=== PATIENT | female | born 1990 | race Two or more races ===

== ENCOUNTER 2017-06-24 20:31 | Emergency (ER) | payer OTHER ==
--- NOTE | ~2017-06-24 | US84 ---
[id number] [facility] [address] [place], [place] [address] [id number] E MR#: [id number] Acc #: [id number] NAME: CARLEEN LUBIN : 1990 SEX: F STUDY DATE/TIME: 06/24/2017 21:46 UNIT: RIO ROOM: STUDY DESCRIPTION: US LE Veins Complete Lex Stdy Attending Physician: Basim Lance D.O. Ordering Physician: Basim Lance D.O. Primary Care Physician: No Primary Care Physician MEDICAL IMAGING REPORT This report is preliminary unless electronic signature is present EXAM Lower extremity venous ultrasound, 06/24/2017. HISTORY Bilateral lower extremity pain and swelling from midthigh to feet x2 months intermittent. TECHNIQUE Venous ultrasound examination of both lower extremities was performed using grayscale, spectral Doppler and color flow Doppler imaging. FINDINGS The examination is negative. There is no evidence of deep venous thrombus from the groin to the lower calf bilaterally. Visualized greater saphenous veins are also patent. IMPRESSION Negative examination. No evidence of lower extremity deep venous thrombosis. Dictated by... Yusuf Belcher M.D. THIS IS AN ELECTRONICALLY VERIFIED REPORT Yusuf Belcher M.D. at 06/25/2017 7:55 PM KATHRINE/terrie TD: 06/25/2017 01:30 JOB #: [id number] MEDICAL IMAGING REPORT Page 1 of 1 COPY
[2017-06-24 22:58] LABS: URINE SOURCE CLEAN CATCH
[2017-06-24 23:04] LABS: URINE APPEARANCE CLEAR; URINE BILIRUBIN NEG (NEG); URINE BLOOD NEG (NEG); URINE COLOR YELLOW; URINE GLUCOSE NEG (NEG); URINE KETONE NEG (NEG); URINE LEUKOCYTE ESTERASE NEG (NEG); URINE NITRATE NEG (NEG); URINE PROTEIN NEG (NEG)
[2017-06-24 23:08] LABS: CULTURE INDICATED? NO
[2017-06-24 23:14] LABS: AMPHETAMINE NEG (NEG); BARBITURATES NEG (NEG); BENZODIAZEPINES NEG (NEG); COCAINE NEG (NEG); MARIJUANA NEG (NEG); OPIATES NEG (NEG); TRICYCLIC ANTIDEPRESSANTS NEG (NEG); U METHADONE NEG (NEG)
[2017-06-24 23:16] LABS: BASOPHIL# 0.1 X10e3 (0-0.3); BASOPHIL% 0.8 % (0-2.5); EOSINOPHIL# 0.1 X10e3 (0-0.7); HEMATOCRIT 41.6 % (35.0-45.0); HEMOGLOBIN 13.8 gm/dL (12.0-16.0); LYMPHOCYTE# 2.7 X10e3 (1.0-3.5); LYMPHOCYTE% 21.2 % (17.0-45.0); MEAN CELL VOLUME 90.6 FL (83-96); MEAN CORPUSCULAR HGB CONC 33.1 g/dL (30-36); MONOCYTE# 0.8 X10e3 (0-1.0); MONOCYTE% 6.7 % (3.0-12.0); NEUTROPHIL# 8.9 X10e3 (1.5-7.1); NEUTROPHIL% 70.3 % (40-75); PLATELET COUNT 299 X10e3 (140-420); RED BLOOD COUNT 4.59 X10e (3.90-5.30); RED CELL DISTRIBUTION WIDTH 13.5 % (11.0-15.5); WHITE BLOOD COUNT 12.7 X10e3 (4.0-10.5)
[2017-06-24 23:17] LABS: DIFF IND NO
[2017-06-24 23:24] LABS: PARTIAL THROMBOPLASTIN TIME 28.9 SECONDS (23.5-31.3)
[2017-06-24 23:27] LABS: POC - CKMB <1.0 ng/mL (0.0-7.9); POC - TROPONIN <0.05 ng/mL (<=0.05)
[2017-06-24 23:40] LABS: ALBUMIN SERUM 4.5 g/dL (3.5-5.0); ALKALINE PHOSPHATASE 67 U/L (32-92); ALT (SGPT) 21 U/L (10-40); AST (SGOT) 18 U/L (10-42); BILIRUBIN, DIRECT <0.1 mg/dL (0.0-0.2); BILIRUBIN,INDIRECT 0.4 mg/dL (0.0-0.9); BILIRUBIN,TOTAL 0.5 mg/dL (0.2-2.0); BLOOD UREA NITROGEN 17 mg/dL (9-23); BUN/CREATININE RATIO 18.88; CALCIUM SERUM 9.8 mg/dL (8.4-10.2); CARBON DIOXIDE 25 mmol/L (22-31); CHLORIDE 104 mmol/L (100-111); CREATININE SERUM 0.9 mg/dL (0.6-1.4); GLOM FILT RATE Estimated 88.9 mL/min (>60); GLUCOSE FASTING 94 mg/dL (70-110); POTASSIUM 3.6 mmol/L (3.5-5.1); PROTEIN TOTAL SERUM 7.8 g/dL (6.0-8.3); SODIUM 139 mmol/L (135-145)
== END 2017-06-25 00:29 | disposition home or self-care (01) ==
LOC: CED 20:31
PROVIDERS: Emergency Medicine
DX: M79.604 Pain in right leg (principal); M79.605 Pain in left leg; M79.89 Other specified soft tissue disorders; Z88.0 Allergy status to penicillin
CPT/HCPCS: 36415; 80048; 80076; 80307; 81003; 82553; 83880; 84484; 84703; 85025; 85610; 85730; 93970; 96374; 99284; J1885